=== PATIENT | male | born 1960 | race Caucasian/White ===

== ENCOUNTER 2021-07-12 18:24 | Emergency (ER) | payer SELFPAY ==
[~2021-07-12] VITALS: Ht 188 cm; Wt 113.6 kg
[2021-07-12 18:25] VITALS: BP 119/80
--- NOTE | 2021-07-12 18:33 | NUR ---
COVID VACCINATED X2 W/ MODERNA
== END 2021-07-12 18:56 ==
LOC: ER 18:24
DX: T14.90XA Injury, unspecified, initial encounter (principal); W22.11XA Striking against or struck by driver side automobile airbag, initial encounter; Y93.89 Activity, other specified; Y92.89 Other specified places as the place of occurrence of the external cause; Y99.8 Other external cause status
CPT/HCPCS: 99283